=== PATIENT | female | born 1995 | race Caucasian/White ===

== ENCOUNTER 2023-11-14 22:27 | Emergency (ER) | payer BC, SELFPAY ==
--- NOTE | ~2023-11-14 | CT_ITS ---
EXAMINATION: CT CHEST WITHOUT CONTRAST CLINICAL INFORMATION: Fall. Left lateral rib pain. COMPARISON: CT abdomen pelvis dated 04/07/2020 TECHNIQUE: Multidetector volumetric CT imaging of the chest was done. Axial MIP volume rendering provided. Sagittal and coronal reformatted images were obtained. This CT examination was performed using dose optimization techniques as appropriate, variously including the following: *Automated exposure control *Adjustment of mA and/or kV according to patient size (this includes techniques or standardized protocols for targeted exams where dose is matched to indication/reason for exam; i.e. extremities or head) *Use of iterative reconstruction technique DLP: 178 mGy-cm FINDINGS: SURVEY CHIEF: Clear LUNGS: The lungs are clear with no evidence of inflammation or nodules. Central airways are clear. MEDIASTINUM: Heart is normal in size. No pericardial effusion. No mediastinal adenopathy. Thyroid gland is unremarkable. CORONARY ARTERY CALCIFICATION: None visualized on this study. PLEURA: There is no pleural effusion. No pleural mass or thickening. No pneumothorax. AXILLA: No lymphadenopathy. UPPER ABDOMEN: Large volume of fluid material is noted in the stomach. Imaged portion of the bowel is otherwise unremarkable. No intraperitoneal free air. OSSEOUS STRUCTURES: No fracture or malalignment. Thoracic spine is intact and normal appearance of the bowel. Intervertebral discs are well-preserved. No rib fractures are identified. No discrete soft tissue injuries are identified in this region. CT/CT chest wo IV con IMPRESSION: 1. No acute abnormalities are identified in the chest. No rib fractures are identified. 2. Large volume of food material in the stomach. Fleischner guidelines were followed.
[2023-11-14 23:22] VITALS: BP 108/66; PULSE 84; RESP 18; TEMP 36.7; O2SAT 99; BMI 22.9
[2023-11-14 23:52] LABS: UPreg QC Valid YES; Urine Pregnancy NEGATIVE (NEGATIVE)
--- NOTE | 2023-11-14 23:57 | ED.GENADULT ---
HPI - General Adult General Chief complaint: Fall Stated complaint: Fall Time Seen by Provider: 11/14/23 23:32 Source: patient, family (), RN notes reviewed and old records reviewed Mode of arrival: ambulatory Limitations: no limitations History of Present Illness HPI narrative: 28-year-old female presents for evaluation of left chest wall pain. Patient reports that she slipped on water in the bathroom and landed on the edge of the tub She struck the left side of her chest against the tub Denies hitting her head or losing consciousness She complains of pain that is worse with taking a deep breath. Denies any bruising the area She has not on any blood thinners No other complaints or concerns at this time Related Data Allergies Allergy/AdvReac Type Severity Reaction Status Date / Time No Known Allergies Allergy Verified 11/14/23 23:27 [No Known Allergies*] Review of Systems Constitutional: Constitutional: Denies body ache(s), Denies chills, Denies fever(s) and Denies headache(s) ENT: Denies headache(s) and Denies sore throat Cardiovascular: Cardiovascular: Reports chest pain Respiratory: Respiratory: Denies cough and Reports pain on inspiration Gastrointestinal: Gastrointestinal: Denies abdominal pain, Denies nausea and Denies vomiting Musculoskeletal: Musculoskeletal: Denies back pain Integumentary/Breasts: Skin/Breast: Denies rash Neurologic: Denies headache(s) PMFSH Social History Social History Smoked in Last 30 Days: No Use of substances other than those prescribed or required for medical reasons: No Advance Directives: No Advance Directives Information Provided: Yes Patient : No Physical Exam ED Vital Signs: Vital Signs - 24 hr 11/14/23 23:22 Temperature 98.1 F Pulse Rate 84 Respiratory Rate 18 Blood Pressure 108/66 Pulse Oximetry 99 Oxygen Delivery Method Room Air BMI result Body Mass Index 22.9 Const General: healthy appearing, comfortable, no acute distress, alert and awake Nutritional Appearance: well nourished Orientation/consciousness: patient oriented x3 HENMT Head: Yes normocephalic and Yes atraumatic Eyes Eyelids: Yes eyelids normal Conjunctivae: conjunctivae normal Sclerae: sclerae normal Corneas: corneas normal Pupils: Equal, round and reactive pupils present EOM: EOMs intact bilaterally Neck Neck: Yes full ROM Chest Other: Tenderness to palpation of the left chest wall in the mid to anterior axillary line at the level of the 4th through 7th ribs. No crepitus. No overlying ecchymosis or wounds Chest palpation & inspection: normal inspection of the chest Resp Effort & Inspection: normal respiratory effort, able to speak in complete sentences and not labored GI Inspection: No distended Palpation (GI): Soft to palpation, not firm, nontender, no guarding and not rigid Skin General skin exam: elasticity normal Neuro General: patient oriented x3 Cranial nerves: Yes Equal, round and reactive pupils present and Yes Bilaterally intact EOM present Cognition (Neuro): normal cognition Extrem Other: Moving all extremities well without any obvious deformities Medical Decision Making Medical Decision Making MDM Narrative: [age] old female with no significant past medical history presents for evaluation of chest wall pain after falling and hitting the side of the tub. No other injuries. Her physical exam is reassuring. She is tender without crepitus or wounds. Lungs are clear to auscultation bilaterally with good and equal chest rise. 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 They elect to get a CT scan of the chest which was ordered. Differential Diagnosis Differential Diagnoses: The differential diagnosis associated with the presentation includes Rib fracture Chest wall contusion Pneumothorax Muscle strain Lab Data Labs: Lab Results 11/14/23 Range/Units 23:46 Urine Test NEGATIVE (NEGATIVE) Discharge Plan Discharge Clinical Impression: Left-sided chest wall pain Patient Disposition: Left W/O Completing Treatment Instructions: Chest Wall Pain (ED) Additional Instructions: You are leaving before your CT scan is resulted Use ibuprofen or Tylenol for pain Follow-up with your primary doctor Print Language: Estonian
--- NOTE | 2023-11-15 00:26 | PC.NURSE ---
Pt requested Ibuprofen or equivalent for pt, and requested discharge. Provider made aware. However, before receiving medication, pt and left WCT.
== END 2023-11-15 00:28 | disposition left against medical advice (07) ==
PROVIDERS: Physician Assistant; Emergency Provider Emergency Medicine
DX: R07.89 Other chest pain (principal); Z91.81 History of falling
CPT/HCPCS: 71250; 81025; 99284